=== PATIENT | female | born 1985 | race Two or more races ===

== ENCOUNTER 2018-09-08 07:59 | Emergency (ER) | payer SELFPAY ==
[~2018-09-08] VITALS: Ht 172.7 cm; Wt 69.9 kg
[2018-09-08 08:04] VITALS: BP 124/84
[2018-09-08] MEDS ORDERED: NKM (08:10)
--- NOTE | 2018-09-08 08:10 | NUR ---
ED Nurse Note: Patient walked into ED c/o lower abdominal pain for three days, 07/27, "beating" pain, patient reports "it feels like something exploeded." patient denies any nausea and vomiting, diarrhea. patient is alert awake x4 ambulatory, breathing unlabored and even.
[2018-09-08] MEDS ORDERED: Ketorolac 30mg Inj IV ONE (08:15)
--- NOTE | 2018-09-08 08:35 | NUR ---
ED Nurse Note: blood drawn and sent to lab
--- NOTE | 2018-09-08 09:00 | NUR ---
ED Nurse Note: patient went to US in stable condition
[2018-09-08 09:09] LABS: ANION GAP 7 mmol/L (5-15); BLOOD UREA NITROGEN 8 mg/dL (7-18); CALCIUM 9.6 MG/DL (8.5-10.1); CARBON DIOXIDE 26 MMOL/L (21-32); CHLORIDE 107 MMOL/L (98-107); CREATININE 0.7 MG/DL (0.55-1.30); POTASSIUM 4.2 MMOL/L (3.5-5.1); SODIUM 140 MMOL/L (136-145)
[2018-09-08 09:13] LABS: ALANINE AMINOTRANSFERASE 36 U/L (12-78); ALBUMIN 3.7 G/DL (3.4-5.0); ALBUMIN/GLOBULIN RATIO 0.9 (1.0-2.7); ALKALINE PHOSPHATASE 75 U/L (46-116); ASPARTATE AMINO TRANSFERASE 108 U/L (15-37); BILIRUBIN,TOTAL 0.6 MG/DL (0.2-1.0)
[2018-09-08 09:26] LABS: EOSINOPHILS % (AUTO) 0.6 % (0.0-3.0); HEMATOCRIT 42.3 % (37.0-47.0); HEMOGLOBIN 14.7 G/DL (12.0-16.0); LYMPHOCYTES % (AUTO) 15.5 % (20.0-45.0); MEAN CORPUSCULAR VOLUME 97 FL (80-99); MONOCYTES % (AUTO) 9.7 % (1.0-10.0); NEUTROPHILS % (AUTO) 73.2 % (45.0-75.0); PLATELET COUNT 157 K/UL (150-450); RED BLOOD COUNT 4.34 M/UL (4.20-5.40); RED CELL DISTRIBUTION WIDTH 11.5 % (11.6-14.8); WHITE BLOOD COUNT 9.7 K/UL (4.8-10.8)
[2018-09-08 09:39] LABS: APPEARANCE,URINE CLOUDY; BILIRUBIN, URINE NEGATIVE (NEGATIVE); GLUCOSE, URINE (UA) NEGATIVE (NEGATIVE); KETONES,URINE 1+ (NEGATIVE); LEUKOCYTE ESTERASE ,URINE 1+ (NEGATIVE); NITRITE,URINE NEGATIVE (NEGATIVE); PH,URINE 6 (4.5-8.0); PROTEIN,URINE NEGATIVE (NEGATIVE); UROBILINOGEN,URINE 1 MG/DL (0.0-1.0)
[2018-09-08 09:40] LABS: COLOR,URINE YELLOW
[2018-09-08] MEDS ORDERED: IBUPROFEN600 MG ORAL (09:51)
--- NOTE | 2018-09-08 09:52 | Diagnostic Imaging Report ---
Indication: Pelvic pain, negative urine test Technique: Transabdominal and transvaginal images of the pelvis. Doppler interrogation of the bilateral ovaries Comparison: none Findings: Uterus measures 6.1 cm length by 2.7 cm AP. It is retroverted. Endometrium measures 8 mm thick. There is a 14 mm diameter nabothian cyst as well as other smaller nabothian cysts incidentally noted. No other myometrial abnormality. There is a small amount of free cul-de-sac fluid. Right ovary measures 3.1 cm in length. Left ovary measures 2.7 cm in length. Both ovaries demonstrate normal blood flow. No adnexal mass. Impression: No acute or significant abnormality demonstrated Free pelvic fluid, presumably physiologic Incidental finding of multiple cervical nabothian cysts
--- NOTE | 2018-09-08 09:55 | Emergency Room Report ---
History of Present Illness General Chief Complaint: Abdominal Pain Source: Patient Present Illness HPI Patient is a 32-year-old female presented after increased left lower abdominal pain for several days. Patient reports having onset after intercourse. She denies any fever. She denies any vaginal discharge. She states that she has previously had diagnosis of Bartholin cyst. She denies any vaginal swelling. She reports having increased pain with movement. She had normal menses approximately 2 weeks ago. She states pain was sharp. She reports having normal bowel movements. She denies any dysuria or flank pain. She had prior history of appendectomy. Allergies: Coded Allergies: Molds and Smuts (Verified Allergy, Unknown, 09/08/18) Uncoded Allergies: SEAFOOD (Allergy, Unknown, 09/08/18) Patient History Past Medical History: see triage record Last Menstrual Period: 08/2018 Now: No Reviewed Nursing Documentation: PMH: Agreed; PSxH: Agreed Nursing Documentation-PMH Past Medical History: No History, Except For Review of Systems All Other Systems: negative except mentioned in HPI Physical Exam Vital Signs Date Time Temp Pulse Resp B/P (MAP) Pulse Ox O2 Delivery O2 Flow Rate FiO2 09/08/18 08:04 98.4 75 20 124/84 (97) 97 Room Air Sp02 EP Interpretation: reviewed, normal General Appearance: normal inspection, well appearing, no apparent distress, alert, GCS 15 Head: atraumatic ENT: normal ENT inspection, hearing grossly normal, normal voice Neck: normal inspection, full range of motion, supple, no bony tend Respiratory: normal inspection, lungs clear, normal breath sounds, no respiratory distress, no retraction, no wheezing Cardiovascular #1: regular rate, rhythm, no edema Gastrointestinal: normal inspection, normal bowel sounds, non tender, soft, no guarding, no hernia Genitourinary: no CVA tenderness Musculoskeletal: normal inspection, back normal, normal range of motion Neurologic: normal inspection, alert, oriented x3, responsive, eating disorder specialist III-XII nml as tested, speech normal Psychiatric: normal inspection, judgement/insight normal, mood/affect normal Medical Decision Making Diagnostic Impression: Primary Impression: Ovarian cyst ER Course Patient presented for left-sided abdominal pain. Differential diagnosis include is not limited to ovarian torsion, renal colic, ovarian cyst rupture, diverticulitis, pelvic inflammatory disease, to ovarian abscess among others. Because of complexity of patient's case laboratory testing and imaging studies were ordered. Patient was noted to have significant pain to the left lower abdomen. She was given IV Toradol for pain. Pelvic ultrasound showed mild free fluid in the cul-de-sac with normal ovarian blood flow. Patient wasadvised to follow-up with [facility] Labs Test 09/08/18 08:20 09/08/18 09:32 White Blood Count 9.7 K/UL (4.8-10.8) Red Blood Count 4.34 M/UL (4.20-5.40) Hemoglobin 14.7 G/DL (12.0-16.0) Hematocrit 42.3 % (37.0-47.0) Mean Corpuscular Volume 97 FL (80-99) Mean Corpuscular Hemoglobin 33.8 PG (27.0-31.0) Mean Corpuscular Hemoglobin Concent 34.7 G/DL (32.0-36.0) Red Cell Distribution Width 11.5 % (11.6-14.8) Platelet Count 157 K/UL (150-450) Mean Platelet Volume 9.3 FL (6.5-10.1) Neutrophils (%) (Auto) 73.2 % (45.0-75.0) Lymphocytes (%) (Auto) 15.5 % (20.0-45.0) Monocytes (%) (Auto) 9.7 % (1.0-10.0) Eosinophils (%) (Auto) 0.6 % (0.0-3.0) Basophils (%) (Auto) 1.0 % (0.0-2.0) Prothrombin Time 10.4 SEC (9.30-11.50) Prothromb Time International Ratio 1.0 (0.9-1.1) Activated Partial Thromboplast Time 29 SEC (23-33) Sodium Level 140 MMOL/L (136-145) Potassium Level 4.2 MMOL/L (3.5-5.1) Chloride Level 107 MMOL/L (98-107) Carbon Dioxide Level 26 MMOL/L (21-32) Anion Gap 7 mmol/L (5-15) Blood Urea Nitrogen 8 mg/dL (7-18) Creatinine 0.7 MG/DL (0.55-1.30) Estimat Glomerular Filtration Rate > 60 mL/min (>60) Glucose Level 106 MG/DL (74-106) Calcium Level 9.6 MG/DL (8.5-10.1) Total Bilirubin 0.6 MG/DL (0.2-1.0) Aspartate Amino Transf (AST/SGOT) 108 U/L (15-37) Alanine Aminotransferase (ALT/SGPT) 36 U/L (12-78) Alkaline Phosphatase 75 U/L (46-116) Total Protein 7.7 G/DL (6.4-8.2) Albumin 3.7 G/DL (3.4-5.0) Globulin 4.0 g/dL Albumin/Globulin Ratio 0.9 (1.0-2.7) Lipase 84 U/L (73-393) Urine Color Yellow Urine Appearance Cloudy Urine pH 6 (4.5-8.0) Urine Specific [place] 1.020 (1.005-1.035) Urine Protein Negative (NEGATIVE) Urine Glucose (UA) Negative (NEGATIVE) Urine Ketones 1+ (NEGATIVE) Urine Blood 1+ (NEGATIVE) Urine Nitrite Negative (NEGATIVE) Urine Bilirubin Negative (NEGATIVE) Urine Urobilinogen 1 MG/DL (0.0-1.0) Urine Leukocyte Esterase 1+ (NEGATIVE) Urine RBC 0-2 /HPF (0 - 2) Urine WBC 0-2 /HPF (0 - 2) Urine Squamous Epithelial Cells Moderate /LPF (NONE/OCC) Urine Bacteria Few /HPF (NONE) Urine Mucus Few /LPF (NONE/OCC) Urine HCG, Qualitative Negative (NEGATIVE) Last Vital Signs Date Time Temp Pulse Resp B/P (MAP) Pulse Ox O2 Delivery O2 Flow Rate FiO2 09/08/18 08:34 75 20 Room Air 09/08/18 08:04 98.4 124/84 97 Status: improved Disposition: HOME, SELF-CARE Condition: Stable Scripts Ibuprofen* (MOTRIN*) 600 Mg Tablet 600 MG ORAL Q8H PRN for For Pain, #30 TAB 0 Refills Prov: Israel Carmichael MD 09/08/18 Referrals: NOT CHOSEN IPA/,REFERRING (PCP) Patient Instructions: Abdominal Pain, Adult Additional Instructions: Follow up with clinical microbiologist. Israel Carimchael MD Sep 08, 2018 09:55
[2018-09-08 10:06] VITALS: BP 124/84
--- NOTE | 2018-09-08 10:06 | NUR ---
ER DISCHARGE NOTE: Patient is cleared to be discharged per ERMD DR ACKERMAN, pt is aox4, on room air, with stable vital signs. pt was given dc and prescription instructions, pt was able to verbalize understanding, pt id band and iv site removed without complications. pt is able to ambulate with steady gait. pt took all belongings.
== END 2018-09-08 10:07 | disposition home or self-care (01) ==
LOC: EMR 08:21
DX: N88.8 Other specified noninflammatory disorders of cervix uteri (principal); Z91.013 Allergy to seafood; Z90.89 Acquired absence of other organs
CPT/HCPCS: 36415; 76830; 76856; 80053; 81003; 81025; 83690; 85025; 85610; 85730; 86850; 86900; 86901; 96374; 99284; J1885; J7040